=== PATIENT | female | born 1990 | race Caucasian/White ===

== ENCOUNTER 2019-11-25 14:55 | Emergency (ER) | payer OTHER ==
--- NOTE | 2019-11-25 15:32 | EDM.PDOC ---
ED HPI GENERAL MEDICAL PROBLEM - General Chief Complaint: Chest Pain Stated Complaint: CHEST PAIN Time Seen by Provider: 11/25/19 15:18 Source of Information: Reports: Patient History Limitations: Reports: No Limitations - History of Present Illness INITIAL COMMENTS - FREE TEXT/NARRATIVE: Patient presents for evaluation of left mid anterior chest pain which began approximately 1300 hrs. today. The pain began spontaneously. She has had multiple episodes of this before and has been evaluated on more than one occasion. It sounds like her work-up has largely consisted of blood work, EKGs and occasional chest imaging. She has been told on occasion that this is related to anxiety. It happens multiple times throughout the month but never awakens her at night. It has been approximately 3 years since she has come in to be evaluated for it. Typically when the episode begins, it resolves on its own within 1 hour. Today because of persistence of symptoms, her sister enc ouraged her to come in to be evaluated. When it occurs, nothing in particular seems to make it better, nor initiated. She states that generally she has just learned to live with the occurrence of these symptoms. Today the pain began in her left arm but then moved into its customary position in the left anterior mid chest. No fever or chills. No cough. She states that at times she feels like she has trouble catching her breath but is able to talk and do other activities. No abdominal discomfort. She had not taken anything for symptoms prior to arrival today. Onset: Today, Sudden Onset Time: 13:00 Duration: Constant Location: Reports: Chest (Left mid chest, its usual location.) Quality: Reports: Dull Severity: Mild Improves with: Reports: None Worsens with: Reports: None Associated Symptoms: Reports: No Other Symptoms Left Arm Pain Score (Numeric/FACES): 5 - Related Data Allergies Allergy/AdvReac Type Severity Reaction Status Date / Time prochlorperazine Allergy Mild Rash Verified 11/25/19 15:22 [From Compazine] Home Meds: Home Meds ALPRAZolam [Xanax] 0.25 mg PO DAILY 11/25/19 [History] Famotidine 40 mg PO BEDTIME 11/25/19 [History] Sucralfate [Carafate] 1 gm PO TID 11/25/19 [History] ED ROS GENERAL - Review of Systems Review Of Systems: See Below Constitutional: Reports: No Symptoms HEENT: Reports: No Symptoms Respiratory: Reports: Shortness of Breath (Occasional feelings of dyspnea but not activity limiting.). Denies: Wheezing, Pleuritic Chest Pain, Cough Cardiovascular: Reports: Chest Pain (Left anterior as described.). Denies: Palpitations Endocrine: Reports: No Symptoms GI/Abdominal: Reports: No Symptoms Skin: Reports: No Symptoms ED EXAM, GENERAL - Physical Exam Exam: See Below Free Text/Narrative:: This is an adult female interviewed in room 4. She is in no distress and freely conversant. Exam Limited By: No Limitations General Appearance: Alert, No Apparent Distress Head: Atraumatic Neck: Normal Inspection Respiratory/Chest: No Respiratory Distress, Lungs Clear Cardiovascular: Regular Rate, Rhythm (Borderline tachycardic.), No Murmur GI/Abdominal: Normal Bowel Sounds, Soft EKG INTERPRETATION EKG Date: 11/25/19 Time: 15:47 Rhythm: NSR Rate (Beats/Min): 76 [place]: Normal P-Wave: Present QRS: Normal ST-T: Normal QT: Normal EKG Interpretation Comments: EKG is somewhat reduced in amplitude but otherwise shows no acute concerning changes. Course - Vital Signs Last Recorded V/S: Last Vital Signs Temp 36.5 C 11/25/19 15:15 Pulse 82 11/25/19 16:16 Resp 16 11/25/19 16:16 BP 110/69 11/25/19 16:16 Pulse Ox 100 11/25/19 16:16 - Orders/Labs/Meds Orders: Active Orders 24 hr Category Date Time Status EKG Documentation Completion [RC] ASDIRECTED Care 11/25/19 15:35 Ordered EKG 12 Lead [EK] Routine Ther 11/25/19 15:34 Ordered Labs: Laboratory Tests 11/25/19 11/25/19 11/25/19 Range/Units 15:50 15:50 15:50 WBC 6.6 (4.5-11.0) K/uL RBC 4.22 (3.30-5.50) M/uL Hgb 12.7 (12.0-15.0) g/dL Hct 38.0 (36.0-48.0) % MCV 90 (80-98) fL MCH 30 (27-31) pg MCHC 33 (32-36) % Plt Count 338 (150-400) K/uL Neut % (Auto) 62 (36-66) % Lymph % (Auto) 30 (24-44) % [place] % (Auto) 7 H (2-6) % Eos % (Auto) 0 L (2-4) % Baso % (Auto) 1 (0-1) % D-Dimer, Quantitative < 100 (0.0-400.0) ng/mL Sodium (140-148) mmol/L Potassium (3.6-5.2) mmol/L Chloride (100-108) mmol/L Carbon Dioxide (21-32) mmol/L Anion Gap (5.0-14.0) mmol/L BUN (7-18) mg/dL Creatinine (0.6-1.0) mg/dL Est Cr Clr Drug Dosing mL/min Estimated GFR (MDRD) (>60) Glucose (74-106) mg/dL Calcium (8.5-10.1) mg/dL C-Reactive Protein < 0.05 (0.0-0.3) mg/dL 11/25/19 Range/Units 15:50 WBC (4.5-11.0) K/uL RBC (3.30-5.50) M/uL Hgb (12.0-15.0) g/dL Hct (36.0-48.0) % MCV (80-98) fL MCH (27-31) pg MCHC (32-36) % Plt Count (150-400) K/uL Neut % (Auto) (36-66) % Lymph % (Auto) (24-44) % [place] % (Auto) (2-6) % Eos % (Auto) (2-4) % Baso % (Auto) (0-1) % D-Dimer, Quantitative (0.0-400.0) ng/mL Sodium 143 (140-148) mmol/L Potassium 3.9 (3.6-5.2) mmol/L Chloride 106 (100-108) mmol/L Carbon Dioxide 26 (21-32) mmol/L Anion Gap 11.1 (5.0-14.0) mmol/L BUN 7 (7-18) mg/dL Creatinine 0.9 (0.6-1.0) mg/dL Est Cr Clr Drug Dosing 68.97 mL/min Estimated GFR (MDRD) > 60 (>60) Glucose 126 H (74-106) mg/dL Calcium 8.7 (8.5-10.1) mg/dL C-Reactive Protein (0.0-0.3) mg/dL - Re-Assessments/Exams Free Text/Narrative Re-Assessment/Exam: 11/25/19 15:42 I discussed that the fact that symptoms have been coming and going for a number of years he has reassuring to me. Also the fact that she is never awakened at night with symptoms is reassuring. We will look for any alarming acute findings but ultimately she may benefit from having a stress test or outpatient heart rate monitoring for further reassurance and diagnoses. 11/25/19 16:43 I reviewed lab and EKG results which are all normal. I do not have an explanation for the discomfort she feels other than it may be chest wall discomfort or could be related to anxiety. The fact that the symptoms do not occur at night is very reassuring. She asked about times where she feels short of breath but I suspect that is related to not exhaling completely when she is aware/focused on the left chest discomfort. As discussed earlier, she does not have any nocturnal shortness of breath symptoms. She could discuss this further with primary care but based on her description of symptoms, they're reoccurrence over several years, no positive test results, it would be difficult to recommend further testing such as a stress test or heart rate monitor etc. She was discharged in stable condition. Departure - Departure Time of Disposition: 16:39 Disposition: Home, Self-Care 01 Clinical Impression: Chest pain of uncertain etiology Referrals: PCP,None [Primary Care Provider] - Forms: ED Department Discharge Additional Instructions: No abnormalities were seen today in blood testing or your EKG. I do not have a ready explanation for the symptoms that you feel. The shortness of breath he described may be related to not exhaling completely when you are aware of the chest discomfort in the left side. If you feel short of breath at home, try exhaling fully and then taking smaller breaths in. I suspect that we will find breathing is okay. The fact that you do not have these symptoms at night is extremely reassuring. Recheck with primary care if you have additional questions about other potential testing however screening tests for additional radiology tests and other exams today were all normal. Sepsis Event Note (ED) - Evaluation Sepsis Screening Result: No Definite Risk - Focused Exam Vital Signs: Vital Signs Temp Pulse Resp BP Pulse Ox 11/25/19 16:16 82 16 110/69 100 11/25/19 15:15 36.5 C 97 15 112/67 100 - My Orders Last 24 Hours: My Active Orders 11/25/19 15:34 EKG 12 Lead [EK] Routine 11/25/19 15:35 EKG Documentation Completion [RC] ASDIRECTED - Assessment/Plan Last 24 Hours: My Active Orders 11/25/19 15:34 EKG 12 Lead [EK] Routine 11/25/19 15:35 EKG Documentation Completion [RC] ASDIRECTED
== END 2019-11-25 16:55 | disposition home or self-care (01) ==
LOC: JP.ED 14:55
DX: R07.89 Other chest pain (principal); Z88.8 Allergy status to other drugs, medicaments and biological substances; Z79.899 Other long term (current) drug therapy
CPT/HCPCS: 36415; 80048; 85025; 85379; 86140; 93005; 99285-25

== ENCOUNTER 2020-02-29 10:04 | Emergency (ER) | payer OTHER ==
--- NOTE | 2020-02-29 11:20 | EDM.PDOC ---
ED HPI GENERAL MEDICAL PROBLEM - General Chief Complaint: General Stated Complaint: SOB, DIZZY Time Seen by Provider: 02/29/20 11:00 Source of Information: Reports: Patient, RN History Limitations: Reports: No Limitations - History of Present Illness INITIAL COMMENTS - FREE TEXT/NARRATIVE: 29-year-old female who awakened this morning feeling palpitations dizziness and lightheaded. She put on her watch and noted her rate at 150. It slowed spontaneously as it has in the past and is currently at less than 100 and about 80. She says she had a few day monitor in the past which showed according to her private doctor some extra beats. However she has not had a Zio patch or any cardiac work-up thus far. She says that she will not have insurance for outpatient visits or consultations until March because of a moved from [place]. She is very concerned because this is a repetitive thing and comes for no known reason and disappears but is discomforting when it occurs. She has had no treatment for any kind of arrhythmia or significant work-up Onset: Other Location: Reports: Chest Quality: Reports: Ache Severity: Mild Improves with: Reports: None Worsens with: Reports: None Associated Symptoms: Reports: No Other Symptoms - Related Data Allergies Allergy/AdvReac Type Severity Reaction Status Date / Time prochlorperazine Allergy Mild Rash Verified 02/29/20 10:23 [From Compazine] Home Meds: Home Meds Famotidine 40 mg PO BEDTIME 11/25/19 [History] Sucralfate [Carafate] 1 gm PO TID 11/25/19 [History] LORazepam [Ativan] 0.5 mg PO BID 02/29/20 [History] Past Medical History Cardiovascular History: Reports: Angina Gastrointestinal History: Reports: GERD Other Gastrointestinal History: suspect ulcerative colitis Musculoskeletal History: Reports: Neck Pain, Chronic Neurological History: Reports: Headaches, Chronic Psychiatric History: Reports: Anxiety Other Oncologic History: suspicious skin lesion - Infectious Disease History Infectious Disease History: Reports: Mononucleosis - Past Surgical History Cardiovascular Surgical History: Reports: None GI Surgical History: Reports: None Social & Family History - Tobacco Use Tobacco Use Status *Q: Never Tobacco User - Caffeine Use Caffeine Use: Reports: Tea - Recreational Drug Use Recreational Drug Use: Yes Recreational Drug Type: Reports: Marijuana/Hashish Recreational Drug Use Frequency: Rarely ED ROS GENERAL - Review of Systems Review Of Systems: See Below Constitutional: Reports: No Symptoms HEENT: Reports: No Symptoms Respiratory: Reports: No Symptoms Cardiovascular: Reports: Lightheadedness, Palpitations Endocrine: Reports: No Symptoms GI/Abdominal: Reports: No Symptoms : Reports: No Symptoms Musculoskeletal: Reports: No Symptoms Skin: Reports: No Symptoms Neurological: Reports: No Symptoms Psychiatric: Reports: No Symptoms Hematologic/Lymphatic: Reports: No Symptoms Immunologic: Reports: No Symptoms ED EXAM, GENERAL - Physical Exam Exam: See Below Free Text/Narrative:: 29-year-old female who appears anxious sitting on the gurney relatively thin in nature. Her general exam is unremarkable except that she seems to have a split first sound and somewhat irregular heartbeat although with her regular sinus it would appear Exam Limited By: No Limitations General Appearance: Alert, WD/WN, No Apparent Distress Ears: Normal External Exam Nose: Normal Inspection Throat/Mouth: Normal Inspection Head: Atraumatic, Normocephalic Neck: Normal Inspection, Supple, Non-Tender, Full Range of Motion Respiratory/Chest: No Respiratory Distress, Lungs Clear, Normal Breath Sounds, No Accessory Muscle Use, Chest Non-Tender Cardiovascular: Normal Peripheral Pulses, Regular Rate, Rhythm, No Edema, Other (She has a variably split first sound) GI/Abdominal: Normal Bowel Sounds, Soft, Non-Tender, No Organomegaly, No Distention Back Exam: Normal Inspection, Full Range of Motion Extremities: Normal Inspection, Normal Range of Motion, No Pedal Edema Neurological: Alert, Oriented, Normal Cognition Psychiatric: Normal Affect, Normal Mood Skin Exam: Warm, Dry, Intact, Normal Color Lymphatic: No Adenopathy Course - Vital Signs Text/Narrative:: Patient has not had a significant cardiac work-up and probably needs one and that she has had documented rates up to 150 periodically. However she seems encumbered by only being able to visit the emergency department until March 28 when her insurance changes. Her EKG is negative. Chest x-ray is negative on my review Her laboratory is all negative.. No arrhythmias while in the department. Holter monitors applied. She will call me when I am back on Tuesday and then to get a report of the Holter monitor and we will try to arrange within her insurance limitations for cardiac follow-up Last Recorded V/S: Last Vital Signs Temp 36.8 C 02/29/20 10:25 Pulse 122 H 02/29/20 10:25 Resp 16 02/29/20 10:25 BP 122/77 02/29/20 10:25 Pulse Ox 99 02/29/20 10:25 - Orders/Labs/Meds Orders: Active Orders 24 hr Category Date Time Status EKG Documentation Completion [RC] ASDIRECTED Care 02/29/20 11:14 Active EKG 12 Lead [EK] Stat Ther 02/29/20 11:13 Ordered Labs: Laboratory Tests 02/29/20 02/29/20 02/29/20 Range/Units 11:13 11:13 11:28 WBC 4.7 (4.5-11.0) K/uL RBC 4.34 (3.30-5.50) M/uL Hgb 12.7 (12.0-15.0) g/dL Hct 39.4 (36.0-48.0) % MCV 91 (80-98) fL MCH 29 (27-31) pg MCHC 32 (32-36) % Plt Count 341 (150-400) K/uL D-Dimer, Quantitative 103.15 (0.0-500.0) ng/mL ABG Hemoglobin 13.3 (12.0-16.0) g/dL ABG Oxyhemoglobin 41.2 % ABG Carboxyhemoglobin 1.4 (0.0-1.6) % ABG Methemoglobin 0.9 % VBG pH 7.403 (7.350-7.450) VBG pCO2 43.5 mm/Hg VBG pO2 25.9 mm/Hg VBG HCO3 26.6 mmol/L VBG Total CO2 24.0 mmol/L VBG O2 Saturation 42.2 VBG O2 Content 7.7 %vol VBG Base Excess 2.0 mm/L O2 Delivery Device Room air Sodium (140-148) mmol/L Potassium (3.6-5.2) mmol/L Chloride (100-108) mmol/L Carbon Dioxide (21-32) mmol/L Anion Gap (5.0-14.0) mmol/L BUN (7-18) mg/dL Creatinine (0.6-1.0) mg/dL Est Cr Clr Drug Dosing mL/min Estimated GFR (MDRD) (>60) Glucose (74-106) mg/dL Calcium (8.5-10.1) mg/dL Total Bilirubin (0.2-1.0) mg/dL AST (15-37) U/L ALT (12-78) U/L Alkaline Phosphatase (46-116) U/L Troponin I (0.000-0.056) ng/mL NT-Pro-B Natriuret Pep (5-125) pg/mL Total Protein (6.4-8.2) g/dL Albumin (3.4-5.0) g/dL Globulin (2.3-3.5) g/dL Albumin/Globulin Ratio (1.2-2.2) 02/29/20 Range/Units 11:28 WBC (4.5-11.0) K/uL RBC (3.30-5.50) M/uL Hgb (12.0-15.0) g/dL Hct (36.0-48.0) % MCV (80-98) fL MCH (27-31) pg MCHC (32-36) % Plt Count (150-400) K/uL D-Dimer, Quantitative (0.0-500.0) ng/mL ABG Hemoglobin (12.0-16.0) g/dL ABG Oxyhemoglobin % ABG Carboxyhemoglobin (0.0-1.6) % ABG Methemoglobin % VBG pH (7.350-7.450) VBG pCO2 mm/Hg VBG pO2 mm/Hg VBG HCO3 mmol/L VBG Total CO2 mmol/L VBG O2 Saturation VBG O2 Content %vol VBG Base Excess mm/L O2 Delivery Device Sodium 141 (140-148) mmol/L Potassium 4.2 (3.6-5.2) mmol/L Chloride 104 (100-108) mmol/L Carbon Dioxide 27 (21-32) mmol/L Anion Gap 9.6 (5.0-14.0) mmol/L BUN 9 (7-18) mg/dL Creatinine 0.8 (0.6-1.0) mg/dL Est Cr Clr Drug Dosing 77.59 mL/min Estimated GFR (MDRD) > 60 (>60) Glucose 105 (74-106) mg/dL Calcium 8.9 (8.5-10.1) mg/dL Total Bilirubin 0.5 (0.2-1.0) mg/dL AST 13 L (15-37) U/L ALT 23 (12-78) U/L Alkaline Phosphatase 43 L (46-116) U/L Troponin I < 0.017 (0.000-0.056) ng/mL NT-Pro-B Natriuret Pep 74 (5-125) pg/mL Total Protein 7.1 (6.4-8.2) g/dL Albumin 4.0 (3.4-5.0) g/dL Globulin 3.1 (2.3-3.5) g/dL Albumin/Globulin Ratio 1.3 (1.2-2.2) Departure - Departure Time of Disposition: 13:05 Disposition: Home, Self-Care 01 Condition: Good Clinical Impression: Arrhythmia, Tachycardia with heart rate 141-160 beats per minute - Discharge Information Referrals: PCP,None [Primary Care Provider] - Additional Instructions: Call the emergency department Tuesday evening and discuss with me the results of your Holter monitor and follow-up with cardiology Sepsis Event Note (ED) - Evaluation Sepsis Screening Result: No Definite Risk - Focused Exam Vital Signs: Vital Signs Temp Pulse Resp BP Pulse Ox 02/29/20 10:25 36.8 C 122 H 16 122/77 99 02/29/20 10:15 36.8 C 122 H 16 122/77 99 - My Orders Last 24 Hours: My Active Orders 02/29/20 11:13 EKG 12 Lead [EK] Stat 02/29/20 11:14 EKG Documentation Completion [RC] ASDIRECTED - Assessment/Plan Last 24 Hours: My Active Orders 02/29/20 11:13 EKG 12 Lead [EK] Stat 02/29/20 11:14 EKG Documentation Completion [RC] ASDIRECTED
--- NOTE | 2020-02-29 12:10 | CRLCR ---
Indication: Rapid heartbeat, pain and shortness of breath Comparison: None available. Technique: Single AP view chest Findings: There is no focal consolidation, effusion, or pneumothorax. The cardiomediastinal silhouette is within normal limits. The bony thorax is grossly intact. Impression: No acute cardiopulmonary abnormality. Dictated by Teja Hidalgo MD @ Feb 29 2020 12:08PM Signed by Dr. Teja Hidalgo @ Feb 29 2020 12:08PM
== END 2020-02-29 13:25 | disposition home or self-care (01) ==
LOC: JP.ED 10:04
DX: R00.0 Tachycardia, unspecified (principal); F41.9 Anxiety disorder, unspecified; K21.9 Gastro-esophageal reflux disease without esophagitis; Z88.8 Allergy status to other drugs, medicaments and biological substances; Z79.899 Other long term (current) drug therapy
CPT/HCPCS: 36415; 71045; 80053; 82803; 83880; 84484; 85027; 85379; 93005; 99285-25